=== PATIENT | female | born 1945 | race Caucasian/White ===

== ENCOUNTER 2016-09-24 12:13 | Inpatient (IN) | payer MEDICARE, BC ==
--- NOTE | 2016-09-24 13:13 | ED ---
Altered Mental Status HPI - General Chief Complaint: Altered Mental Status Stated Complaint: Altered Mental Time Seen by Provider: 09/24/16 12:50 Source: patient, RN notes reviewed Mode of arrival: wheelchair Limitations: no limitations - History of Present Illness Initial Comments: This is a 71-year-old female history of hypertension who is somewhat noncompliant with her medications who had an episode this started around 10:30 to 11:00 this morning of decreased responsiveness and some confusion. She resolved and now is awake alert oriented 3 with no deficits. She denies any headache blurry vision focal weakness to upper or lower extremities fevers chills or sweats. She did tell a family member that she was "going down" which the patient states that is what she says when she feels like she is getting ill. She denies any dysuria or hematuria she did recently have a urinary tract infection was treated. She has no prior history of stroke no history of hypoglycemia. MD Complaint: altered mental status, confusion - Related Data Home Medications Medication Instructions Recorded Confirmed Latanoprost Ophth [Xalatan 0.005%] 1 drops RIGHT EYE HS 12/11/15 09/24/16 Levothyroxine Sodium [Synthroid] 50 mcg PO DAILY 12/11/15 09/24/16 Montelukast [Singulair] 10 mg PO HS 12/11/15 09/24/16 Timolol 0.5% Ophth Soln [Timoptic 1 drop BOTH EYES BID 12/11/15 09/24/16 0.5% Ophth Soln] Albuterol Nebulized [Ventolin 2.5 mg INHALATION RT-TID PRN 09/24/16 09/24/16 Nebulized] Albuterol Sulfate [Proair Hfa] 2 puff INHALATION RT-Q4H PRN 09/24/16 09/24/16 Biotin 5 mg PO DAILY 09/24/16 09/24/16 Budesonide-Formot 160-4.5 Mcg 2 puff INHALATION RT-BID 09/24/16 09/24/16 [Symbicort 160-4.5 Mcg Inhaler] Cyclobenzaprine [Flexeril] 5 - 10 mg PO HS 09/24/16 09/24/16 Fluticasone/Salmeterol [Advair 1 tab PO RT-BID 09/24/16 09/24/16 250-50 Diskus] Nitrofurantoin Monohyd/M-Cryst 100 mg PO Q12HR 09/24/16 09/24/16 [Macrobid] SUMAtriptan SUCCINATE [Imitrex] 50 mg PO DAILY PRN 09/24/16 09/24/16 Zolpidem Tartrate [Zolpidem 10 mg PO HS PRN 09/24/16 09/24/16 Tartrate] traMADol HCL [Ultram] 50 mg PO Q6HR PRN 09/24/16 09/24/16 Allergies Allergy/AdvReac Type Severity Reaction Status Date / Time Penicillins Allergy Unknown Verified 09/24/16 12:19 Sulfa (Sulfonamide Allergy Unknown Verified 09/24/16 12:19 Antibiotics) Review of Systems ROS Statement: Those systems with pertinent positive or pertinent negative responses have been documented in the HPI. ROS Other: All systems not noted in ROS Statement are negative. Past Medical History Past Medical History: Asthma, Hyperlipidemia Additional Past Medical History / Comment(s): glaucoma, fungal infection of the brain History of Any Multi-Drug Resistant Organisms: None Reported Past Surgical History: Appendectomy, Tonsillectomy Additional Past Surgical History / Comment(s): shoulder, sinus Past Psychological History: No Psychological Hx Reported Smoking Status: Never smoker Past Alcohol Use History: None Reported Past Drug Use History: None Reported General Exam - General Exam Comments Initial Comments: This is a well-developed well-nourished awake alert oriented 3 female Limitations: no limitations General appearance: alert, in no apparent distress Head exam: Present: atraumatic, normocephalic, normal inspection Eye exam: Present: normal appearance, PERRL, EOMI. Absent: scleral icterus, conjunctival injection, periorbital swelling ENT exam: Present: normal exam, mucous membranes moist Neck exam: Present: normal inspection. Absent: tenderness, meningismus, lymphadenopathy Respiratory exam: Present: normal lung sounds bilaterally. Absent: respiratory distress, wheezes, rales, rhonchi, stridor Cardiovascular Exam: Present: regular rate, normal rhythm, normal heart sounds. Absent: systolic murmur, diastolic murmur, rubs, gallop, clicks GI/Abdominal exam: Present: soft, normal bowel sounds. Absent: distended, tenderness, guarding, rebound, rigid Extremities exam: Present: normal inspection, full ROM, normal capillary refill. Absent: tenderness, pedal edema, joint swelling, calf tenderness Back exam: Present: normal inspection Neurological exam: Present: alert, oriented X3, CN II-XII intact Psychiatric exam: Present: normal affect, normal mood Skin exam: Present: warm, dry, intact, normal color. Absent: rash Course Vital Signs 09/24/16 09/24/16 09/24/16 12:17 12:54 14:08 Temperature 98.2 F Pulse Rate 64 63 66 Respiratory 18 14 18 Rate Blood Pressure 212/84 184/93 190/92 O2 Sat by Pulse 97 100 98 Oximetry 09/24/16 09/24/16 14:45 15:40 Temperature Pulse Rate 61 67 Respiratory 14 14 Rate Blood Pressure 171/88 169/87 O2 Sat by Pulse 100 98 Oximetry - Reevaluation(s) Reevaluation #1: 09/24/16 16:13 Evaluation patient after return from CAT scan shows no changes Medical Decision Making - Medical Decision Making I did a long discussion with patient family regarding the findings also discussed with . Patient will be admitted for evaluation for TIA. - Lab Data Result diagrams: 09/24/16 13:11 09/24/16 13:11 Lab Results 09/24/16 09/24/16 09/24/16 Range/Units 13:11 13:11 13:11 WBC 5.0 (3.8-10.6) k/uL RBC 4.07 (3.80-5.40) m/uL Hgb 12.2 (11.4-16.0) gm/dL Hct 37.6 (34.0-46.0) % MCV 92.3 (80.0-100.0) fL MCH 30.1 (25.0-35.0) pg MCHC 32.6 (31.0-37.0) g/dL RDW 12.8 (11.5-15.5) % Plt Count 216 (150-450) k/uL Neutrophils % 62 % Lymphocytes % 21 % Monocytes % 6 % Eosinophils % 7 % Basophils % 1 % Neutrophils # 3.1 (1.3-7.7) k/uL Lymphocytes # 1.1 (1.0-4.8) k/uL Monocytes # 0.3 (0-1.0) k/uL Eosinophils # 0.4 (0-0.7) k/uL Basophils # 0.1 (0-0.2) k/uL PT (9.0-12.0) sec INR (<1.1) APTT (22.0-30.0) sec Sodium 141 (137-145) mmol/L Potassium 4.1 (3.5-5.1) mmol/L Chloride 102 (98-107) mmol/L Carbon Dioxide 30 (22-30) mmol/L Anion Gap 9 mmol/L BUN 13 (7-17) mg/dL Creatinine 0.56 (0.52-1.04) mg/dL Est GFR (MDRD) Af Amer >60 (>60 ml/min/1.73 sqM) Est GFR (MDRD) Non-Af >60 (>60 ml/min/1.73 sqM) Glucose 109 H (74-99) mg/dL POC Glucose (mg/dL) (75-99) mg/dL POC Glu Disability Manager ID Calcium 9.3 (8.4-10.2) mg/dL Magnesium 2.0 (1.6-2.3) mg/dL Total Bilirubin 0.4 (0.2-1.3) mg/dL AST 21 (14-36) U/L ALT 32 (9-52) U/L Alkaline Phosphatase 77 (38-126) U/L Total Creatine Kinase 29 L (30-135) U/L CK-MB (CK-2) 0.6 (0.0-2.4) ng/mL CK-MB (CK-2) Rel Index 2.1 Troponin I <0.012 (0.000-0.034) ng/mL Total Protein 6.4 (6.3-8.2) g/dL Albumin 3.6 (3.5-5.0) g/dL Urine Color Urine Appearance (Clear) Urine pH (5.0-8.0) Ur Specific [place] (1.001-1.035) Urine Protein (Negative) Urine Glucose (UA) (Negative) Urine Ketones (Negative) Urine Blood (Negative) Urine Nitrate (Negative) Urine Bilirubin (Negative) Urine Urobilinogen (<2.0) mg/dL Ur Leukocyte Esterase (Negative) Urine RBC (0-5) /hpf Urine WBC (0-5) /hpf Ur Squamous Epith Cells (0-4) /hpf Urine Mucus (None) /hpf Urine Opiates Screen (NotDetected) Ur Oxycodone Screen (NotDetected) Urine Methadone Screen (NotDetected) Ur Propoxyphene Screen (NotDetected) Ur Barbiturates Screen (NotDetected) U Tricyclic Antidepress (NotDetected) Ur Phencyclidine Scrn (NotDetected) Ur Amphetamines Screen (NotDetected) U Methamphetamines Scrn (NotDetected) U Benzodiazepines Scrn (NotDetected) Urine Cocaine Screen (NotDetected) U Marijuana (THC) Screen (NotDetected) 09/24/16 09/24/16 09/24/16 Range/Units 13:14 13:40 13:55 WBC (3.8-10.6) k/uL RBC (3.80-5.40) m/uL Hgb (11.4-16.0) gm/dL Hct (34.0-46.0) % MCV (80.0-100.0) fL MCH (25.0-35.0) pg MCHC (31.0-37.0) g/dL RDW (11.5-15.5) % Plt Count (150-450) k/uL Neutrophils % % Lymphocytes % % Monocytes % % Eosinophils % % Basophils % % Neutrophils # (1.3-7.7) k/uL Lymphocytes # (1.0-4.8) k/uL Monocytes # (0-1.0) k/uL Eosinophils # (0-0.7) k/uL Basophils # (0-0.2) k/uL PT 10.9 (9.0-12.0) sec INR 1.1 (<1.1) APTT 21.5 L (22.0-30.0) sec Sodium (137-145) mmol/L Potassium (3.5-5.1) mmol/L Chloride (98-107) mmol/L Carbon Dioxide (22-30) mmol/L Anion Gap mmol/L BUN (7-17) mg/dL Creatinine (0.52-1.04) mg/dL Est GFR (MDRD) Af Amer (>60 ml/min/1.73 sqM) Est GFR (MDRD) Non-Af (>60 ml/min/1.73 sqM) Glucose (74-99) mg/dL POC Glucose (mg/dL) 106 H (75-99) mg/dL POC Glu Disability Manager ID Annabella Mejia A Calcium (8.4-10.2) mg/dL Magnesium (1.6-2.3) mg/dL Total Bilirubin (0.2-1.3) mg/dL AST (14-36) U/L ALT (9-52) U/L Alkaline Phosphatase (38-126) U/L Total Creatine Kinase (30-135) U/L CK-MB (CK-2) (0.0-2.4) ng/mL CK-MB (CK-2) Rel Index Troponin I (0.000-0.034) ng/mL Total Protein (6.3-8.2) g/dL Albumin (3.5-5.0) g/dL Urine Color Light Yellow Urine Appearance Clear (Clear) Urine pH 7.0 (5.0-8.0) Ur Specific [place] 1.006 (1.001-1.035) Urine Protein Negative (Negative) Urine Glucose (UA) Negative (Negative) Urine Ketones Negative (Negative) Urine Blood Negative (Negative) Urine Nitrate Negative (Negative) Urine Bilirubin Negative (Negative) Urine Urobilinogen <2.0 (<2.0) mg/dL Ur Leukocyte Esterase Moderate H (Negative) Urine RBC 1 (0-5) /hpf Urine WBC 1 (0-5) /hpf Ur Squamous Epith Cells <1 (0-4) /hpf Urine Mucus Rare H (None) /hpf Urine Opiates Screen Not Detected (NotDetected) Ur Oxycodone Screen Not Detected (NotDetected) Urine Methadone Screen Not Detected (NotDetected) Ur Propoxyphene Screen Not Detected (NotDetected) Ur Barbiturates Screen Not Detected (NotDetected) U Tricyclic Antidepress Not Detected (NotDetected) Ur Phencyclidine Scrn Not Detected (NotDetected) Ur Amphetamines Screen Not Detected (NotDetected) U Methamphetamines Scrn Not Detected (NotDetected) U Benzodiazepines Scrn Not Detected (NotDetected) Urine Cocaine Screen Not Detected (NotDetected) U Marijuana (THC) Screen Not Detected (NotDetected) - EKG Data -: EKG Interpreted by Mn EKG shows normal: sinus rhythm (Normal sinus rhythm rate is 62. Interval 176 QRS duration 70 daily since QTC of 40/[address] configuration.) - Radiology Data Radiology results: report reviewed (I did review the imaging and reports no acute findings.), image reviewed Critical Care Time Critical Care Time: Yes Critical Care Time: 31 minutes of critical care time which was initial history physical lab and x- ray evaluations reevaluation patient response to therapy. Reevaluation after blood pressure medication. Discussion with patient family regarding findings discussed with the admitting physician. Orders and documentation the above. Disposition Clinical Impression: Transient ischemic attack (TIA), Uncontrolled hypertension Disposition: ADMITTED IP TO THIS HOSP Condition: Stable
[2016-09-24 13:16] LABS: Glucose,Whole Blood 106 mg/dL (75-99)
[2016-09-24 13:22] LABS: Basophils # (A) 0.1 k/uL (0-0.2); Basophils % (A) 1 %; CH 30.7; CHCM 33.4; Eosinophils # (A) 0.4 k/uL (0-0.7); Eosinophils % (A) 7 %; HCT 37.6 % (34.0-46.0); HDW 2.51; HGB 12.2 gm/dL (11.4-16.0); Luc # (Auto) 0.13; Luc % (Auto) 3; Lymphocytes # (A) 1.1 k/uL (1.0-4.8); Lymphocytes % (A) 21 %; MCH 30.1 pg (25.0-35.0); MCHC 32.6 g/dL (31.0-37.0); MCV 92.3 fL (80.0-100.0); Mean Platelet Volume 6.9; Monocytes # (A) 0.3 k/uL (0-1.0); Monocytes % (A) 6 %; Neutrophils # (A) 3.1 k/uL (1.3-7.7); Neutrophils % (A) 62 %; RBC 4.07 m/uL (3.80-5.40); RDW 12.8 % (11.5-15.5); WBC (Perox) 5.28
[2016-09-24 13:37] LABS: ALT 32 U/L (9-52); AST 21 U/L (14-36); Alkaline Phosphatase 77 U/L (38-126); Anion Gap 9 mmol/L; Blood Urea Nitrogen 13 mg/dL (7-17); Calcium 9.3 mg/dL (8.4-10.2); Carbon Dioxide 30 mmol/L (22-30); Chloride 102 mmol/L (98-107); Glucose 109 mg/dL (74-99); Non-African American GFR(MDRD) >60 (>60 ml/min/1.73 sqM); Potassium 4.1 mmol/L (3.5-5.1); Sodium 141 mmol/L (137-145); Total Bilirubin 0.4 mg/dL (0.2-1.3); Total Protein 6.4 g/dL (6.3-8.2)
--- NOTE | 2016-09-24 13:50 | XR ---
EXAMINATION TYPE: XR chest 2V DATE OF EXAM: 09/24/2016 1:26 PM COMPARISON: 07/28/2016 INDICATION: Syncope altered mental status TECHNIQUE: Frontal and lateral views of the chest are obtained. FINDINGS: The heart size is normal. The pulmonary vasculature is normal. The lungs are clear. IMPRESSION: 1. No acute pulmonary process.
[2016-09-24 13:58] LABS: Creatine Kinase 29 U/L (30-135)
[2016-09-24] MEDS ORDERED: ENALAPRILAT 1.25 MG/ML 1 ML VIAL IVP STA (14:03)
[2016-09-24] MEDS ORDERED: SODIUM CHLORIDE 0.9% 500 ML IV STA (14:03)
[2016-09-24 14:11] LABS: Creatine Kinase MB 0.6 ng/mL (0.0-2.4); Troponin I <0.012 ng/mL (0.000-0.034)
--- NOTE | 2016-09-24 14:21 | CT ---
EXAMINATION TYPE: CT brain wo con DATE OF EXAM: 09/24/2016 1:56 PM COMPARISON: 02/03/2012 INDICATION: syncopal episode with memory loss DLP: 995.5 mGycm, Automated exposure control for dose reduction was used. CONTRAST: None CT of the brain is performed utilizing 3 mm thick sections through the posterior fossa and 3 mm thick sections through the remaining calvarium. Study is performed within 24 hours of arri eyad to the hospital. No abnormal hyperdensity is present to suggest an acute intracranial hemorrhage. No mass lesion is evident. No acute infarcts are evident. Ventricles and sulci are appropriate for the patient age. Extensive paranasal sinus mucosal thickening is present. Air-fluid levels are within the maxillary si nuses. Correlate for acute sinusitis. Postsurgical changes are within the ethmoid air cells. Frontal sinuses are clear. Air-fluid levels within the sphenoid sinuses. This may have some improvement from prior. The left sphenoid wall near the carotid artery remains thin. IMPRESSIONS: 1. No acute intracranial process. 2. Pansinusitis
[2016-09-24 14:33] LABS: Appearance,Urine Clear (Clear); Bilirubin,Urine Negative (Negative); Glucose,Urine (UA) Negative (Negative); Ketones,Urine Negative (Negative); Leukocyte Esterase,Urine Moderate (Negative); Mucus,Urine Rare /hpf; Nitrite,Urine Negative (Negative); Particle Count 731; Protein,Urine Negative (Negative); RBC,Urine 1 /hpf (0-5); Specific Gravity,Urine 1.006 (1.001-1.035); Squamous Epithelial Cell,Urine <1 /hpf (0-4); UA Billing (MACRO vs. MICRO) MICRO; Urobilinogen,Urine <2.0 mg/dL (<2.0); WBC,Urine 1 /hpf (0-5)
[2016-09-24 15:10] LABS: INR 1.1 (<1.1); Prothrombin Time 10.9 sec (9.0-12.0)
[2016-09-24 15:11] LABS: Partial Thromboplastin Time 21.5 sec (22.0-30.0)
[2016-09-24] MEDS ORDERED: ALBUTEROL NEBULIZED 2.5 MG/3 ML INHALATION PRN (16:19)
[2016-09-24] MEDS ORDERED: SUMAtriptan SUCCINATE 50 MG TAB PO PRN (16:19)
[2016-09-24] MEDS ORDERED: ALBUTEROL INHALER 60 PUFF/8 GM INHALER INHALATION PRN (16:19)
[2016-09-24] MEDS ORDERED: ZOLPIDEM 10 MG TAB PO PRN (16:19)
[2016-09-24] MEDS ORDERED: SODIUM CHLORIDE 0.9% 1,000 ML IV SCH (16:30)
[2016-09-24] MEDS ORDERED: ASPIRIN 81 MG CHEW PO STA (16:33)
[2016-09-24] MEDS: traMADol 50 MG TAB PO PRN (17:38)
--- NOTE | 2016-09-24 18:26 | US ---
EXAMINATION TYPE: US carotid duplex BILAT DATE OF EXAM: 09/24/2016 5:12 PM COMPARISON: NONE CLINICAL HISTORY: Patient had period of confusion lasting less than 1 hour. EXAM MEASUREMENTS: RIGHT: Peak Systolic Velocity (PSV) cm/sec ----- Right CCA: 60.9 ----- Right ICA: 66.7 ----- Right ECA: 101.0 ICA/CCA ratio: 1.1 RIGHT: End Diastole cm/sec ----- Right CCA: 15.9 ----- Right ICA: 23.4 ----- Right ECA: 10.6 LEFT: Peak Systolic Velocity (PSV) cm/sec ----- Left CCA: 64.9 ----- Left ICA: 55.6 ----- Left ECA: 81.8 ICA/CCA ratio: 1.3 LEFT: End Diastole cm/sec ----- Left CCA: 18.3 ----- Left ICA: 17.3 ----- Left ECA: 17.7 VERTEBRALS (direction of flow): Right Vertebral: Antegrade Left Vertebral: Antegrade TECHNOLOGIST IMPRESSION: No elevated velocities IMPRESSION: There is antegrade flow in the vertebral arteries. There is significant plaque at the trios healtht carotid artery bifurcation but no elevated velocities are seen. I think that based on the images there is at least 50% stenosis at the origin of the right internal carotid artery. There is approxima te 50% stenosis of the origin of the left internal carotid artery based on the images. Criteria for Assigning % of Stenosis / Diameter reduction (Estimation based on the indirect measurements of the internal carotid artery velocities (ICA PSV). 1. Normal (no stenosis)=ICA PSV < 125 cm/s: ratio < 2.0: ICA EDV<40 cm/s. 2. Less than 50% stenosis=ICA PSV < 125 cm/s: ratio < 2.0: ICA EDV<40 cm/s. 3. 50 to 69% stenosis=ICA PSV of 125 to 230 cm/s: ration 2.0 ? 4.0: ICA EDV 40-100 cm/s. 4. Greater than 70% stenosis to near occlusion= ICA PSV > 230 cm/s: ratio > 4.0: ICA EDV > 100 cm/s. 5. Near occlusion= ICA PSV velocities may be low or undetectable: variable ratio and ICA EDV. 6. Total occlusion=unable to detect flow.
[2016-09-24 18:48] VITALS: RESP 16
[2016-09-24] MEDS ORDERED: SALMETEROL PO SCH (20:00)
[2016-09-24] MEDS ORDERED: FLUTICASONE PO SCH (20:00)
[2016-09-24] MEDS ORDERED: LISINOPRIL 20 MG TAB PO SCH (20:00)
[2016-09-24] MEDS: SYMBICORT 160-4.5 MCG INHALER INHALATION SCH (20:27)
[2016-09-24] MEDS ORDERED: LATANOPROST 0.005% OPHTH DROPS 2.5 ML BTL RIGHT EYE SCH (21:00)
--- NOTE | 2016-09-24 21:07 | HP ---
The patient is a 71-year-old female with history of hypertension, does not take any antihypertensives, does not take any of her cholesterol pills, does take some of her asthma medications, came in with complaints of an episode of confusion, lasted for about 1/2 hour and decreased responsiveness, although patient does not have encephalopathic hypertension ( ). Denied any loss of bowel or bladder continence. Denied any weakness anywhere in the body. Denied any tingling and numbness anywhere in the body. Patient does have chronic numbness in the bilateral lower limbs from neuropathy and radicular pain from chronic low back pain. Patient has a new facial new droop, blurry vision. REVIEW OF SYSTEMS: CONSTITUTIONAL: No fever, no malaise, no fatigue. HEENT: No recent visual problems or hearing problems. Denied any sore throat. CARDIOVASCULAR: No chest pain, orthopnea, PND, no palpitations, no syncope. PULMONARY: No shortness of breath, no cough, no hemoptysis. GASTROINTESTINAL: No diarrhea, no nausea, no vomiting, no abdominal pain. Normoactive bowel sounds. NEUROLOGICAL: As described in HPI. HEMATOLOGICAL: Denies any bleeding or petechiae. GENITOURINARY: Denies any burning micturition, frequency, or urgency. MUSCULOSKELETAL/RHEUMATOLOGICAL: Denies any joint pain, swelling, or any muscle pain. ENDOCRINE: Denies any polyuria or polydipsia. The rest of the 14 point review of systems is negative. Home medications include: 1. Levothyroxine. 2. Montelukast. 3. Timolol. 4. Albuterol. 5. Biotin. 6. Budesonide. 7. Formoterol. 8. ( ) 9. Nitrofurantoin. 10. ( ) 11. Zolpidem and 12. Tramadol. ALLERGIES: ALLERGIC TO PENICILLIN AND SULFA. Past medical history significant for asthma, hyperlipidemia, hypertension ( ) glaucoma, ( ) infection to the sinuses in the past, appendectomy, tonsillectomy, shoulder surgery, sinus surgery. Patient also has history of sarcoidosis. SOCIAL HISTORY: Denies smoking, alcohol abuse or any drug abuse. Family history significant for hypertension in the family. PHYSICAL EXAMINATION: VITAL SIGNS: Temperature 98.2, pulse of 64, respiratory rate of 18. Blood pressure on arrival was 212/84. Patient's blood pressure is 190/92 now, saturating at 98%. GENERAL: The patient is alert and oriented x3, not in any acute distress. Well developed, well nourished. HEENT: Pupils are round and equally reacting to light. EOMI. No scleral icterus. No conjunctival pallor. Normocephalic, atraumatic. No pharyngeal erythema. No thyromegaly. CARDIOVASCULAR: S1 and S2 present. No murmurs, rubs, or gallops. PULMONARY: Chest is clear to auscultation, no wheezing or crackles. ABDOMEN: Soft, nontender, nondistended, normoactive bowel sounds. No palpable organomegaly. MUSCULOSKELETAL: No joint swelling or deformity. EXTREMITIES: No cyanosis, clubbing, or pedal edema. NEUROLOGICAL: Gross neurological examination did not reveal any focal deficits. SKIN: No rashes. LABORATORY DATA: CBC, CMP, essentially within normal limits. Potassium high end of normal, 5.0. CT of the head was reviewed ( ). Comprehensive metabolic profile was reviewed, which was also essentially within normal limits, including no acute abnormalities. EKG did not show any acute ST wave changes. Patient denied any chest pain. ASSESSMENT AND PLAN: 1. Episode of confusion probable related to hypertensive encephalopathy. The patient was given IV ( ). As of now, patient does not have any symptoms of hypertensive urgency and ( ) at this point of time, because of which I have not started her on IV nitroglycerin, but patient will be started on lisinopril. Neurology will be consulted to rule out transient ischemic attack. Patient's carotid Doppler was already ordered. Will obtain an echocardiogram. Will also order lipid panel. 2. Hypertension. 3. Asthma, not in exacerbation. 4. Sarcoidosis, not in sarcoid flare at this point of time. 5. Hyperlipidemia. 6. Noncompliance with medications. 7. Patient's primary care physician is Dr. Markos Hargrove.
[2016-09-25] MEDS: MONTELUKAST 10 MG TAB PO SCH ×2 (01:44→06:45)
[2016-09-25] MEDS: NITROFURANTOIN MONOHYD/M-CRYST 100 MG CAP PO SCH ×2 (01:45→08:03)
[2016-09-25] MEDS: TIMOLOL 0.5% OPHTH DROPS 5 ML BTL BOTH EYES SCH ×2 (01:45→08:03)
[2016-09-25] MEDS: traMADol 50 MG TAB PO PRN ×2 (01:45→10:05)
[2016-09-25] MEDS ORDERED: LEVOTHYROXINE 50 MCG TAB PO SCH (06:30)
[2016-09-25 06:31] LABS: Cholesterol 222 mg/dL (<200); HDL Cholesterol 55 mg/dL (40-60); Triglycerides 69 mg/dL (<150)
[2016-09-25 08:06] VITALS: BP 139/63; PULSE 71; TEMP 97.3
[2016-09-25] MEDS: SYMBICORT 160-4.5 MCG INHALER INHALATION SCH (08:36)
[2016-09-25] MEDS ORDERED: NON-FORMULARY DRUG (Biotin [Biotin] 5 MG) PO SCH (09:00)
[2016-09-25] MEDS ORDERED: ASPIRIN 325 MG TAB PO SCH (09:00)
--- NOTE | 2016-09-25 11:48 | ECHOF ---
Referral Reason:tia htn MEASUREMENTS -------- HEIGHT: 152.4 cm WEIGHT: 57.1 kg BP: RVIDd: 2.3 cm (< 3.3) IVSd: 0.9 cm (0.6 - 1.1) LVIDd: 3.8 cm (3.9 - 5.3) LVPWd: 1.2 cm (0.6 - 1.1) IVSs: 1.2 cm LVIDs: 2.4 cm LVPWs: 1.2 cm LA Diam: 2.9 cm (2.7 - 3.8) Ao Diam: 2.3 cm (2.0 - 3.7) AV Cusp: 1.7 cm (1.5 - 2.6) LA Diam: 3.3 cm (2.7 - 3.8) MV EXCURSION: 10.716 mm (> 18.000) MV EF SLOPE: 52 mm/s (70 - 150) EPSS: 0.2 cm MV E Zak: 0.65 m/s MV DecT: 221 ms MV A Zak: 0.74 m/s MV E/A Ratio: 0.88 RAP: 5.00 mmHg RVSP: 30.05 mmHg FINDINGS -------- Sinus rhythm. This was a technically good study. LV size, wall thickness and systolic function are normal, with an EF greater than 55%. The right ventricle is normal in size. The left atrial size is normal. The right atrial size is normal. There is mild aortic valve sclerosis. There is no evidence of aortic regurgitation. Mild mitral annular calcification present. Mild mitral regurgitation is present. Mild tricuspid regurgitation present. There is no evidence of pulmonary hypertension. The right ventricular systolic pressure, as measured by Doppler, is 30.05mmHg. There is no pulmonic regurgitation present. The aortic root size is normal. There is no pericardial effusion. CONCLUSIONS -------- 1. LV size, wall thickness and systolic function are normal, with an EF greater than 55%. 2. There is mild aortic valve sclerosis. 3. Mild mitral annular calcification present. 4. Mild mitral regurgitation is present. 5. Mild tricuspid regurgitation present. 6. There is no evidence of pulmonary hypertension. 7. The right ventricular systolic pressure, as measured by Doppler, is 30.05mmHg. RADIO FREQUENCY TECHNICIAN: Elissa Paez RDCS
--- NOTE | 2016-09-26 06:57 | EEG ---
DATE OF SERVICE: 09/25/2016 REASON FOR TESTING: Transient ischemic attack. AGE: 71Y DESCRIPTION OF THE PROCEDURE: This EEG was performed using a 21-channel digital electroencephalograph, following the international 10 to 20 system. DESCRIPTION OF THE RECORDING: From the beginning of the tracing, and with the patient's eyes closed, the background rhythm was mostly consisting of 9 Hz alpha frequency in the posterior occipital leads. No obvious asymmetry is seen. Photic stimulation was performed with a minimal driving response seen. No pathological waves were elicited. Hyperventilation was not performed. Occasional muscle and movement artifacts are seen. The patient remains awake throughout the tracing. No epileptiform discharges were seen. Her EKG lead showed a regular rate and rhythm. INTERPRETATION: This awake EEG can be considered within normal limits. There was no asymmetry seen. No epileptiform discharges were noticed. The absence of epileptiform discharges does not rule out the diagnosis of epilepsy, therefore, clinical correlation is recommended.
--- NOTE | 2016-09-26 08:55 | DS ---
DATE OF ADMISSION: 09/24/2016 DATE OF DISCHARGE: 09/25/2016 A 71-year-old came in with an episode of confusion, probably related to hypertensive encephalopathy. Patient has significant improved symptoms. Patient's carotid Doppler was done, and EKG was done, both of which are essentially within normal limits. Patient is noncompliant with blood pressure medications. Her blood pressure today morning is 139/63 on lisinopril. Counseling regarding probably related to measure the blood pressure was provided and asked her to take those readings to her primary doctor, that is Markos Hargrove and patient was started on lisinopril and if she needs a second antihypertensive medication, probably hydrochlorothiazide would be a good idea. Patient will be discharged today in stable medical condition to home. Patient has elevated LDL to 153. I do not believe dietary modification will help her, ( ) and started her on atorvastatin as well. Patient was seen and examined on the day of discharge. Vitals are stable to. PHYSICAL EXAMINATION: GENERAL: The patient is alert and oriented x3, not in any acute distress. Well developed, well nourished. HEENT: Pupils are round and equally reacting to light. EOMI. No scleral icterus. No conjunctival pallor. Normocephalic, atraumatic. No pharyngeal erythema. No thyromegaly. CARDIOVASCULAR: S1 and S2 present. No murmurs, rubs, or gallops. PULMONARY: Chest is clear to auscultation, no wheezing or crackles. ABDOMEN: Soft, nontender, nondistended, normoactive bowel sounds. No palpable organomegaly. MUSCULOSKELETAL: No joint swelling or deformity. EXTREMITIES: No cyanosis, clubbing, or pedal edema. NEUROLOGICAL: Gross neurological examination did not reveal any focal deficits. SKIN: No rashes. FINAL DIAGNOSES: 1. Episode of confusion probably related to hypertensive encephalopathy rather than a transient ischemic attack. 2. Hypertension. 3. Asthma, not in exacerbation. 4. Sarcoidosis, not in sarcoid ( ) at this point of time. 5. Hyperlipidemia. 6. Noncompliance of medications. Patient will be discharged on: 1. Aspirin 81 mg daily. 2. Atorvastatin 40 mg at bedtime. 3. Lisinopril 20 mg oral daily. The rest of the medications will be continued as it is, without any changes and patient will follow with Dr. Markos Hargrove on September 30, 2016 at 2 p.m. Activity as tolerated. Cardiac diet. Spent greater than 35 minutes in total discharge process.
== END 2016-09-25 15:12 | disposition home or self-care (01) | DRG 79 ==
LOC: EC 12:13 → 6SEL 16:16
PROVIDERS: ADMIT Internal Medicine; ATTEND Internal Medicine
DX: I67.4 Hypertensive encephalopathy (principal); G62.9 Polyneuropathy, unspecified; E78.5 Hyperlipidemia, unspecified; I10 Essential (primary) hypertension; J45.909 Unspecified asthma, uncomplicated; T44.7X6A Underdosing of beta-adrenoreceptor antagonists, initial encounter; T46.6X6A Underdosing of antihyperlipidemic and antiarteriosclerotic drugs, initial encounter; R29.810 Facial weakness; H53.8 Other visual disturbances; M54.5 Low back pain; D86.9 Sarcoidosis, unspecified; G89.29 Other chronic pain; H40.9 Unspecified glaucoma; Z88.0 Allergy status to penicillin; Z88.2 Allergy status to sulfonamides; Z86.19 Personal history of other infectious and parasitic diseases; Z79.2 Long term (current) use of antibiotics; Z79.891 Long term (current) use of opiate analgesic; Z82.49 Family history of ischemic heart disease and other diseases of the circulatory system; Z79.51 Long term (current) use of inhaled steroids; Z79.899 Other long term (current) drug therapy; Z90.49 Acquired absence of other specified parts of digestive tract; Z91.14 Patient's other noncompliance with medication regimen; Z71.89 Other specified counseling; Z79.1 Long term (current) use of non-steroidal anti-inflammatories (NSAID)
CPT/HCPCS: 36415; 70450; 71020; 80053; 80061; 80306; 81001; 82550; 82553; 83090; 83735; 84484; 85025; 85610; 85730; 93005; 93306; 93880; 94640; 95816; 96361; 96374; 99291

== ENCOUNTER → 2016-12-11 | Outpatient (CLI) | payer MEDICARE, BC ==
--- NOTE | 2016-12-12 07:11 | XR ---
EXAMINATION TYPE: XR ribs LT DATE OF EXAM ORDERED: 12/11/2016 1:05 PM HISTORY: R07.81. COMPARISON: Previous chest x-ray dated 09/24/2016. FINDINGS: No displaced rib fractures seen. The underlying lung appears unremarkable. There is develo ped a left-sided effusion. IMPRESSION: 1. NO DISPLACED RIB FRACTURES IDENTIFIED. 2. INTERVAL DEVELOPMENT OF A LEFT PLEURAL EFFUSION.
== END | disposition home or self-care (01) ==
LOC: RADXRYALE 12:33
PROVIDERS: ATTEND Physician Assistant Medical
DX: J90 Pleural effusion, not elsewhere classified (principal); R07.81 Pleurodynia

== ENCOUNTER → 2016-12-25 | Outpatient (CLI) | payer MEDICARE, BC ==
--- NOTE | 2016-12-26 08:19 | XR ---
EXAMINATION TYPE: XR chest 2V DATE OF EXAM: 12/25/2016 10:03 AM COMPARISON: Prior chest x-ray September, left RIBS 11 December 2016 HISTORY: Chest pain, fall 2 weeks prior TECHNIQUE: Frontal and lateral views of the chest are obtained. FINDINGS: No significant interval change. There is a spinal curvature. Cardiomediastinal silhouette, pulmonary vascularity and josep are stable, the heart is borderline enlarged. IMPRESSION: No acute cardiopulmonary process. Consider bone scan correlation for occult fracture as indicated. Improvement in left pleural effusion. Scoliosis. Degenerative disc disease.
== END | disposition home or self-care (01) ==
LOC: RADXRYALE 09:37
PROVIDERS: ATTEND Family Medicine
DX: J90 Pleural effusion, not elsewhere classified (principal); M41.9 Scoliosis, unspecified; M51.9 Unspecified thoracic, thoracolumbar and lumbosacral intervertebral disc disorder
CPT/HCPCS: 71020

== ENCOUNTER 2017-02-07 17:08 | Emergency (ER) | payer MEDICARE, BC ==
[2017-02-07 17:35] VITALS: BP 118/60; PULSE 60; RESP 16; TEMP 100.2
--- NOTE | 2017-02-07 18:38 | ED ---
Lower Extremity Injury HPI - General Chief Complaint: Extremity Injury, Lower Stated Complaint: foot pain Time Seen by Provider: 02/07/17 18:25 Source: patient, family, RN notes reviewed Mode of arrival: wheelchair Limitations: no limitations - History of Present Illness Initial Comments: This is a 71-year-old female who presents with complaints of right ankle and foot pain this started about 3 hours prior to admission. She is not recall any particular injury that may have hurt the ankle. She states she's been gardening and doing a lot of outdoor work last several days but does not recall any pertinent tickler traumatic event. She has no prior history of right ankle or foot fractures. No other complaints this time she denies any other symptoms such as runny nose earache sore throat rhinorrhea cough or phlegm production or any other complaints no dysuria. - Related Data Home Medications Medication Instructions Recorded Confirmed Latanoprost Ophth [Xalatan 0.005%] 1 drops RIGHT EYE HS 12/11/15 02/07/17 Levothyroxine Sodium [Synthroid] 50 mcg PO QAM 12/11/15 02/07/17 Montelukast [Singulair] 10 mg PO HS 12/11/15 02/07/17 Timolol 0.5% Ophth Soln [Timoptic 1 drop BOTH EYES BID 12/11/15 02/07/17 0.5% Ophth Soln] Albuterol Nebulized [Ventolin 2.5 mg INHALATION RT-TID PRN 09/24/16 02/07/17 Nebulized] Albuterol Sulfate [Proair Hfa] 2 puff INHALATION RT-Q4H PRN 09/24/16 02/07/17 Biotin 5 mg PO DAILY 09/24/16 02/07/17 Fluticasone/Salmeterol [Advair 1 puff INHALATION RT-BID 09/24/16 02/07/17 250-50 Diskus] SUMAtriptan SUCCINATE [Imitrex] 50 mg PO BID PRN 09/24/16 02/07/17 traMADol HCL [Ultram] 50 mg PO Q6HR PRN 09/24/16 02/07/17 Aspirin EC [Ecotrin Low Dose] 81 mg PO DAILY 02/07/17 02/07/17 Previous Rx's Medication Instructions Recorded Atorvastatin [Lipitor] 40 mg PO HS #30 tablet 09/25/16 Lisinopril [Prinivil] 20 mg PO DAILY #30 tablet 09/25/16 Ibuprofen [Motrin] 600 mg PO Q6HR PRN #20 tab 02/07/17 Allergies Allergy/AdvReac Type Severity Reaction Status Date / Time Penicillins Allergy Rash/Hives/ Verified 02/07/17 19:02 Convulsions Sulfa (Sulfonamide Allergy Swelling/Increased Verified 02/07/17 19:02 Antibiotics) Blood Pressure Review of Systems ROS Statement: Those systems with pertinent positive or pertinent negative responses have been documented in the HPI. ROS Other: All systems not noted in ROS Statement are negative. Past Medical History Past Medical History: Asthma, Hyperlipidemia, Hypertension, Osteoarthritis (OA) , Thyroid Disorder Additional Past Medical History / Comment(s): bp and cholesterol-stopped taking meds. glaucoma, past"fungal infection of the brain", anna mastoiditis(had sx), glaucoma, macular degeneration, migraine, murmur in her 30's, chronic back pain, 4 bulging discs and bone spurs on spine,sarcoidosis, tx w/ abx in past 30 days for uti. History of Any Multi-Drug Resistant Organisms: None Reported Past Surgical History: Appendectomy, Heart Catheterization, Tonsillectomy Additional Past Surgical History / Comment(s): rt shoulder sx( has metal), sinus sx, tube in rt ear-lt ear tube fell out.colonoscopy, anna cataracts-lens implants and sx for glaucoma Past Anesthesia/Blood Transfusion Reactions: No Reported Reaction Additional Past Anesthesia/Blood Transfusion Reaction / Comment(s): clausterphobic Past Psychological History: No Psychological Hx Reported Smoking Status: Never smoker Past Alcohol Use History: None Reported Additional Past Alcohol Use History / Comment(s): 2nd handsmoke >40 years( spouse smoked in house) Past Drug Use History: None Reported - Past Family History Mother Family Medical History: Cancer Additional Family Medical History / Comment(s): breast cancer, heart problems Father Family Medical History: No Reported History Additional Family Medical History / Comment(s): from old age General Exam - General Exam Comments Initial Comments: This is a well-developed well-nourished awake alert oriented 3 female Limitations: no limitations General appearance: alert, in no apparent distress Head exam: Present: atraumatic, normocephalic, normal inspection Eye exam: Present: normal appearance, PERRL, EOMI. Absent: scleral icterus, conjunctival injection, periorbital swelling ENT exam: Present: normal exam, mucous membranes moist Neck exam: Present: normal inspection. Absent: tenderness, meningismus, lymphadenopathy Respiratory exam: Present: normal lung sounds bilaterally. Absent: respiratory distress, wheezes, rales, rhonchi, stridor Cardiovascular Exam: Present: regular rate, normal rhythm, normal heart sounds. Absent: systolic murmur, diastolic murmur, rubs, gallop, clicks Extremities exam: Present: normal inspection, tenderness (Tenderness palpation of the right ankle lateral aspect inferior to the malleolus also tenderness palpation over lateral right foot no step-off or crepitation.) Back exam: Present: normal inspection Neurological exam: Present: alert, oriented X3, CN II-XII intact Psychiatric exam: Present: normal affect, normal mood Skin exam: Present: warm, dry, intact, normal color. Absent: rash Course Vital Signs 02/07/17 17:32 Temperature 100.2 F H Pulse Rate 60 Respiratory 16 Rate Blood Pressure 118/60 O2 Sat by Pulse 98 Oximetry Medical Decision Making - Medical Decision Making I did discuss findings with the patient and her family patient will be discharged she was advised to weight-bear as tolerated ice for 24-48 hours and warm compresses and anti-inflammatories for initial pain follow-up with her doctor and return when necessary - Radiology Data Radiology results: report reviewed, image reviewed (I did review the imaging and reports no acute findings no fractures or subluxations noted. There is some evidence of mild osteoporosis) Disposition Clinical Impression: Right foot strain, Right ankle strain Disposition: HOME SELF-CARE Condition: Good Instructions: Foot Sprain (ED), Ankle Sprain (ED) Prescriptions: Ibuprofen [Motrin] 600 mg PO Q6HR PRN #20 tab PRN Reason: Pain Referrals: Markos Hargrove DO [Primary Care Provider] - 1-2 days
--- NOTE | 2017-02-07 18:59 | XR ---
EXAMINATION TYPE: XR ankle complete RT DATE OF EXAM: 02/07/2017 COMPARISON: NONE HISTORY: Pain lateral side TECHNIQUE: 3 views right ankle FINDINGS: Ankle mortise is intact. No acute displaced fractures are evident. Soft tissues are normal. IMPRESSION: 1. Normal three-view right ankle. 2. Follow-up exams can be performed 7-10 days from acute trauma for continued pain.
--- NOTE | 2017-02-07 19:00 | XR ---
EXAMINATION TYPE: XR foot complete RT DATE OF EXAM: 02/07/2017 COMPARISON: NONE HISTORY: Pain lateral side TECHNIQUE: 3 views right foot FINDINGS: No acute fractures are evident. Joint spaces are preserved. Soft tissues are normal. Follow-up exams can be performed 7-10 days from acute trauma for continued pain. IMPRESSION: 1. Normal three-view right foot.
[2017-02-07] MEDS ORDERED: IBUPROFEN 600 MG TAB PO STA (19:15)
== END 2017-02-07 19:41 | disposition home or self-care (01) ==
LOC: EC 17:08
DX: S96.911A Strain of unspecified muscle and tendon at ankle and foot level, right foot, initial encounter (principal); J45.909 Unspecified asthma, uncomplicated; E78.5 Hyperlipidemia, unspecified; I10 Essential (primary) hypertension; M19.90 Unspecified osteoarthritis, unspecified site; E07.9 Disorder of thyroid, unspecified; Z79.51 Long term (current) use of inhaled steroids; Z79.899 Other long term (current) drug therapy; Z88.0 Allergy status to penicillin; Z88.2 Allergy status to sulfonamides; X58.XXXA Exposure to other specified factors, initial encounter
CPT/HCPCS: 99283

== ENCOUNTER → 2017-10-02 | Outpatient (CLI) | payer MEDICARE, BC ==
--- NOTE | 2017-10-03 07:39 | US ---
EXAMINATION TYPE: US abdomen complete DATE OF EXAM: 10/02/2017 COMPARISON: CT abdomen March 28, 2016 CLINICAL HISTORY: R19.06 Gastric Swelling/Lump. Bloating, epigastric pain, N/V x 2 months EXAM MEASUREMENTS: Liver Length: 12.6 cm Gallbladder Wall: 0.2 cm CBD: 0.4 cm Spleen: 7.3 cm Right Kidney: 10.2 x 4.8 x 4.1 cm Left Kidney: 10.9 x 4.4 x 3.9 cm Pancreas: tail obscured by bowel gas, otherwise wnl Liver: probable hemangioma in right posterior lobe = 2.0cm Gallbladder: wnl Evidence for sonographic Tay's sign: no CBD: wnl Spleen: wnl Right Kidney: prominent renal pelvis versus mild hydro Left Kidney: wnl Upper IVC: wnl Abd Aorta: wnl Scanned area of palpable, anterior to right lobe of liver, possible 1.5cm mass versus other etiology The liver is homogenous. In hepatic dome there is 2 cm hyperechoic lesion seen near image [address] correlate[address] The intrahepatic portion of the IVC and visualized abdominal aorta are within normal l imits. There is no evidence of cholelithiasis. Common bile duct is unremarkable. The visualized po rtions of the pancreas are homogenous. The spleen is unremarkable. Kidneys are symmetric and free o f hydronephrosis. No renal lesions are seen. Towards end of study vague hyper vascular hypoechoic area likely within deep subcutaneous tissue favo rs mediastinal fat. Ill-defined lesion at this area felt less likely but not excluded. Area of concer n appears superficial to the rectus muscle sheath. IMPRESSION: Vague subcutaneous hypervascular lesion at area of palpable abnormality upper abdomen of uncertain etiology. Possible new 2 cm hyperechoic lesion in hepatic dome. Both lesions can be further investigated with contrast-enhanced liver protocol CT study.
== END | disposition home or self-care (01) ==
LOC: RADUSWWP 07:30
PROVIDERS: ATTEND Family Medicine
DX: R19.06 Epigastric swelling, mass or lump (principal)
CPT/HCPCS: 76700

== ENCOUNTER → 2017-10-15 | Outpatient (CLI) | payer MEDICARE, BC ==
[2017-10-15 12:08] LABS: Blood Urea Nitrogen 19 mg/dL (7-17)
--- NOTE | 2017-10-15 13:58 | CT ---
EXAMINATION TYPE: CT abdomen w con DATE OF EXAM: 10/15/2017 HISTORY: Epigastric pain, swelling, mass and lump CT DLP: 249.80mGycm Automated Exposure Control for Dose Reduction was Utilized. CONTRAST: CT scan of the abdomen and pelvis is performed with IV Contrast, patient injected with 100 ml mL of O mnipaque 300. COMPARISON: 03/28/1960 FINDINGS: LUNG BASES: Pleural parenchymal scarring is seen within the right middle lobe. Pectus excavatum defor mity is also incidentally seen. LIVER/GB: There is a similar appearing left hepatic lobe lesion measuring 1.6 cm, unchanged in size f rom the exam of 03/27/2016. It is noted that vessels course through this low-density area and therefor e this may represent atypical rounded hepatic steatosis, atypical hemangioma or focal nodular hyperpl pat. This is presumed to be benign given its stability. A second focal area of hypoattenuation is se en within segment 6 measuring 9 mm on series 3 image 20, retrospectively also seen on the exam of 201 6. No cholelithiasis. PANCREAS: No significant abnormality is seen. SPLEEN: No significant abnormality is seen. No splenomegaly ADRENALS: No significant abnormality is seen. KIDNEYS: Multiple hypoattenuated cortical renal lesions are seen bilaterally measuring up to 4 mm in the left lower pole and 5 mm in the right lower pole, too small to accurately characterize. Statistic ally these represent small renal cysts. BOWEL: Small duodenal diverticulum is incidentally identified. Mild circumferential thickening is see n in the gastric fundus and lower gastric body on the coronal images series 7 image 20, this could be related to gastritis. No focal ulcerations or surrounding inflammatory fat stranding. LYMPH NODES: No greater than 1cm abdominal or pelvic lymph nodes are appreciated. OSSEOUS STRUCTURES: Multilevel moderate degenerative changes are seen in the visualized thoracolumbar spine. IMPRESSION: 1. No CT finding to correspond to the patient's palpable epigastric abdominal abnormality. 2. Hypoattenuated hepatic lesions that overall appears similar to the exam of 2016 and are favored to be benign. These may represent atypical fatty infiltration, hemangiomas, or focal nodular hyperplasi a. If clinically indicated 3 phase MR could be performed for better characterization. 3. Circumferential mild gastric fundal and lower body getting that could relate to mild gastritis.
== END | disposition home or self-care (01) ==
LOC: RADCTMAIN 11:06
PROVIDERS: ATTEND Family Medicine
DX: K29.70 Gastritis, unspecified, without bleeding (principal); R19.06 Epigastric swelling, mass or lump; R93.3 Abnormal findings on diagnostic imaging of other parts of digestive tract
CPT/HCPCS: 82565; 84520; 74160; 36415; Q9967

== ENCOUNTER → 2017-12-08 | Outpatient (CLI) | payer MEDICARE, BC ==
[2017-12-08 13:49] LABS: Blood Urea Nitrogen 18 mg/dL (7-17)
--- NOTE | 2017-12-08 14:56 | CT ---
EXAMINATION TYPE: CT iac w con DATE OF EXAM: 12/08/2017 COMPARISON: 09/24/2016 HISTORY: Bilateral mastoiditis CT DLP: 150 mGycm Automated exposure control for dose reduction was used. CONTRAST: CT scan of the IACs is performed with IV Contrast, patient injected with 100 mL of Isovue 300. FINDINGS: There is partial opacification of the bilateral mastoid air cells in the inferior and dependent porti ons with suggestion of mucoperiosteal thickening suggesting chronicity. Additionally within the visua lized paranasal sinuses there is near complete opacification of the visualized maxillary sinuses and ethmoid sinuses with partial opacification of the sphenoid sinus and antrostomy defects noted. There is density seen within Prussak's space on the left that could represent cholesteatoma as there is subtle blunting of the scutum in comparison to the right (series 4 image 72 and series 3 image 44) . A scant amount of fluid is seen within the right middle ear cavity. Ossicles appear intact bilatera lly. External auditory canals are patent. Epitympanum and hypotympanum are unremarkable. The cochlea and the semicircular canals are symmetric and unremarkable. Vestibular aqueduct and internal carotid canal appear unremarkable. The left vertebral artery is dominant. Vertebral arteries appear patent in their visualized portions. Temporomandibular joints appear symmetric with mild degenerative changes. IMPRESSION: 1. Partial opacification of the bilateral mastoid air cells in keeping with the patient's history of bilateral mastoiditis. 2. Soft tissue density within Prussak's space and subtle blunting of the scutum on the left concernin g for cholesteatoma. 3. Scant amount of right middle ear cavity fluid. 4. Acute on chronic pansinusitis.
== END | disposition home or self-care (01) ==
LOC: RADCTMAIN 13:14
PROVIDERS: ATTEND Otolaryngology
DX: H74.8X3 Other specified disorders of middle ear and mastoid, bilateral (principal); H92.12 Otorrhea, left ear; H91.90 Unspecified hearing loss, unspecified ear; Z86.69 Personal history of other diseases of the nervous system and sense organs
CPT/HCPCS: 82565; 84520; 70481; 36415; Q9967

== ENCOUNTER → 2017-12-09 | Outpatient (CLI) | payer MEDICARE, BC ==
--- NOTE | 2017-12-09 12:35 | XR ---
EXAMINATION TYPE: XR chest 2V DATE OF EXAM: 12/09/2017 COMPARISON: 12/25/2016 INDICATION: Chest pain, cough, fever TECHNIQUE: Frontal and lateral views of the chest are obtained. FINDINGS: The heart size is normal. The pulmonary vasculature is normal. The lungs are clear. There is mild hyperinflation. This could be inspiratory effort emphysematous ch emily. Scoliosis is present within the lower thoracic spine. IMPRESSION: 1. Hyperinflation and/or emphysematous change. 2. No acute pulmonary process.
== END | disposition home or self-care (01) ==
LOC: RADXRYALE 12:04
PROVIDERS: ATTEND Physician Assistant Medical
DX: R07.9 Chest pain, unspecified (principal); R05 Cough
CPT/HCPCS: 71046

== ENCOUNTER → 2018-09-25 | Outpatient (CLI) | payer MEDICARE, BC ==
[2018-09-25 11:12] LABS: Blood Urea Nitrogen 21 mg/dL (7-17)
--- NOTE | 2018-09-25 12:28 | CT ---
EXAMINATION TYPE: CT chest w con DATE OF EXAM: 09/25/2018 COMPARISON: December 14, 2012 HISTORY: Left lower Rib pain /swelling from fall CT DLP: 405 mGycm Automated exposure control for dose reduction was used. CONTRAST: CT scan of the chest is performed with IV Contrast, patient injected with 100 mL of Isovue 300. FINDINGS: LUNGS: The lungs are grossly clear, there is no concerning parenchymal mass or nodule identified. Ta ble benign nodule right upper lobe measuring 5 mm unchanged from prior study. There is no pleural eff usion or pneumothorax seen. The tracheobronchial tree is patent. MEDIASTINUM: There are no greater than 1 cm hilar or mediastinal lymph nodes. No pericardial effusi on is seen. Thoracic aorta is of normal caliber. The heart is not enlarged. UPPER ABDOMEN: No significant abnormality appreciated. OTHER: Severe degenerative change thoracic spine. Scoliotic curvature noted. IMPRESSION: 1. No evidence for traumatic injury to the chest at this time. No displaced rib fracture seen or pneu mothorax. 2. Benign pulmonary nodule right upper lobe.
== END ==
LOC: RADCTMAIN 10:33
PROVIDERS: ATTEND Family Medicine
DX: R91.1 Solitary pulmonary nodule (principal); J44.9 Chronic obstructive pulmonary disease, unspecified; D86.9 Sarcoidosis, unspecified
CPT/HCPCS: 82565; 84520; 71260; 36415; Q9967

== ENCOUNTER → 2019-07-06 | Outpatient (CLI) | payer MEDICARE, BC, OTHER ==
--- NOTE | 2019-07-08 03:35 | CT ---
EXAMINATION TYPE: CT iac wo con DATE OF EXAM: 07/06/2019 COMPARISON: 12/08/2017 HISTORY: 73-year-old female hearing loss, dizziness CT DLP: 150 mGycm Automated exposure control for dose reduction was used. TECHNIQUE: Contiguous high-resolution axial scanning of the temporal bones performed without IV cont rast. Coronal reconstructions were performed. FINDINGS: Atherosclerotic calcifications within the bilateral carotid siphons. Otherwise, limited assessment of the visualized intracranial structures especially along the posterior cranial fossa and thin section technique. The skull base appears normal. External auditory canals appear patent. As compared to 12/08/2017, there is new opacification within the left mesotympanum and infratympanum no w with partial encasement of the middle ear ossicles. On the right, there is slightly greater degree of thickening along the tympanic membrane with a new p artial opacification of the mesotympanum, lesser degree of partial encasement of the middle ear ossic les as compared to the contralateral side but new from 2018. Increasing partial opacification of mid and lower right-sided mastoid air cells. On the left, there i s increasing opacification now involving nearly all of the left-sided mastoid air cells. No osseous destruction of the fine osseous septa of the mastoid air cells on either side. There is no erosion of middle ear ossicles. No blunting of the scutum. There is no abnormality of bony labyrinths. The vestibular and cochlear aqueducts are well visualized. The facial nerve canal is normal bilaterally. The internal auditory canal and meati are symmetrical bilaterally. There is no evidence of fractures. 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 Complete opacification of the bifrontal s inuses and complete to near-complete involving the ethmoid air cells. There appears to be prior bilat eral maxillary medial antrectomies with persistent moderate mucosal thickening. Overall mucosal thick ening slightly progressed from 12/08/2017. Reformatted images confirm above findings. IMPRESSION: 1. Increasing, now complete opacification of left mastoid air cells and increasing opacification invo lving the mid and inferior right mastoid air cells. No osseous erosions. 2. New partial middle ear cavity opacification on both sides, left greater than right, with partial e ncasement of the middle ear ossicles but no ossicular erosions. 3. Bilateral otomastoiditis versus extensive cholesteatoma are differential considerations. 4. Severe chronic pansinusitis, with mucosal thickening slightly progressed from 12/08/2017. There is l keena-standing paranasal sinus disease given the extensive reactive zak-osteogenesis also seen previous ly.
== END | disposition home or self-care (01) ==
LOC: RADCTMAIN 16:05
PROVIDERS: ATTEND Otolaryngology
DX: H70.93 Unspecified mastoiditis, bilateral (principal); J32.4 Chronic pansinusitis; H91.90 Unspecified hearing loss, unspecified ear; H71.90 Unspecified cholesteatoma, unspecified ear
CPT/HCPCS: 70480

== ENCOUNTER → 2019-09-16 | Outpatient (CLI) | payer MEDICARE, BC, OTHER ==
--- NOTE | 2019-09-16 09:12 | XR ---
EXAMINATION TYPE: XR ribs LT w pa chest xray DATE OF EXAM: 09/16/2019 CLINICAL HISTORY: Chest and left-sided rib pain after fall injury TECHNIQUE: Single frontal view of the chest is obtained. A frontal and oblique images of the left-agustin ed ribs. COMPARISON: Chest x-ray December 09, 2017 FINDINGS: There is chronic parenchymal change without suspicious focal air space opacity, pleural ef fusion, or pneumothorax seen. The cardiac silhouette size is stable and within normal limits with at herosclerotic change in the aortic knob. Osseous structures are demineralized with S-shaped scoliosis . Dedicated images of left-sided ribs show old fracture deformity involving the anterolateral fifth thr ough eighth ribs. No acute displaced left-sided rib fractures are seen. IMPRESSION: 1. Chronic changes without acute pulmonary process. 2. Old mid left anterolateral rib fractures. No acute displaced fractures.
--- NOTE | 2019-09-16 09:14 | XR ---
EXAMINATION TYPE: XR thoracic spine complete DATE OF EXAM: 09/16/2019 CLINICAL HISTORY: Fall with mid back pain. TECHNIQUE: Frontal, lateral, and swimmer's view of thoracic spine are obtained. COMPARISON: Thoracic spine x-ray April 30, 2016. FINDINGS: Thoracic spine redemonstrates S-shaped scoliosis which is dextroconvex centered lower thora cic spine and levoconvex centered upper to mid lumbar spine. There is loss of normal thoracic curvatu re on lateral view. Vertebral body heights remain satisfactory. Multilevel [id number] disc spac e narrowing with areas of endplate sclerosis and vacuum disc phenomenon. There prominence versus left aspect lower thoracic spine redemonstrated. No acute displaced fracture is seen. Visualized ribs are intact. IMPRESSION: No acute fracture or dislocation is seen in the thoracic spine. No significant change fr om prior study 2015.
== END | disposition home or self-care (01) ==
LOC: RADXRYALE 08:38
PROVIDERS: ATTEND Physician Assistant Medical
DX: M81.0 Age-related osteoporosis without current pathological fracture (principal); R07.82 Intercostal pain
CPT/HCPCS: 72072

== ENCOUNTER → 2019-11-12 | Outpatient (CLI) | payer MEDICARE, BC, OTHER ==
--- NOTE | 2019-11-16 08:31 | MM ---
Reason for exam: screening (asymptomatic). Last mammogram was performed 4 years and 8 months ago. History: Patient is postmenopausal. Family history of breast cancer in mother at age 67 and breast cancer in grandmother at age 67. Took estrogen for 10 years beginning at age 48. Took progesterone for 10 years beginning at age 48. Physical Findings: A clinical breast exam by your physician is recommended on an annual basis and results should be correlated with mammographic findings. MG Screening Mammo w CAD Bilateral CC and MLO view(s) were taken. Prior study comparison: March 07, 2015, bilateral MG screening mammo w CAD. January 17, 2014, bilateral MG screening mammo w CAD. The breast tissue is heterogeneously dense. This may lower the sensitivity of mammography. Central nodular asymmetries right CC view are more defined. ASSESSMENT: Incomplete: need additional imaging evaluation, BI-RAD 0 RECOMMENDATION: Special view mammogram of the right breast. (3D) If lesion persists on supplemental views, image directed ultrasound is recommended. [facility] will attempt to contact patient to return for supplemental views and ultrasound if indicated.
== END | disposition home or self-care (01) ==
LOC: RADMAMWWP 14:39
PROVIDERS: ATTEND Obstetrics & Gynecology
DX: Z12.31 Encounter for screening mammogram for malignant neoplasm of breast (principal)
CPT/HCPCS: 77067

== ENCOUNTER → 2019-11-19 | Outpatient (CLI) | payer MEDICARE, BC, OTHER ==
--- NOTE | 2019-11-19 14:14 | MM ---
Reason for exam: additional evaluation requested from abnormal screening. Last mammogram was performed less than 1 month ago. History: Patient is postmenopausal. Family history of breast cancer in mother at age 67 and breast cancer in grandmother at age 67. Took estrogen for 10 years beginning at age 48. Took progesterone for 10 years beginning at age 48. Physical Findings: Nurse did not find any significant physical abnormalities on exam. MG 3D Work Up W/Cad RT CC and LM view(s) were taken of the right breast. Prior study comparison: November 12, 2019, bilateral MG screening mammo w CAD. March 07, 2015, bilateral MG screening mammo w CAD. The breast tissue is heterogeneously dense. This may lower the sensitivity of mammography. Benign appearing calcifications in the right breast. The more medial asymmetry resolves. The more posterior asymmetry does not however is stable back to 2013. These results were verbally communicated with the patient and result sheet given to the patient on 11/19/19. ASSESSMENT: Benign, BI-RAD 2 RECOMMENDATION: Return to routine screening mammogram schedule for both breasts.
== END | disposition home or self-care (01) ==
LOC: RADMAMWWP 13:05
PROVIDERS: ATTEND Obstetrics & Gynecology
DX: R92.8 Other abnormal and inconclusive findings on diagnostic imaging of breast (principal)
CPT/HCPCS: 77065; G0279; 77061

== ENCOUNTER → 2020-02-24 | Outpatient (CLI) | payer MEDICARE, BC, OTHER ==
--- NOTE | 2020-02-24 13:39 | MR ---
EXAMINATION TYPE: MR knee RT wo con DATE OF EXAM: 02/24/2020 COMPARISON: NONE HISTORY: Was on a Treadmill and the next day Knee Pain started. All Stiff in Joint area. TECHNIQUE: Multiplanar, multisequence images of the knee is performed without IV contrast. FINDINGS: MEDIAL MENISCUS: Medial extrusion noted on coronal images Anterior horn is intact without tear. Poste rior horn is truncated with abnormal signal particularly along posterior aspect extending to superior and inferior articular surfaces for reference sagittal image 7. LATERAL MENISCUS: Anterior horn is intact without tear. Subtle oblique increased signal posterior hor n extends to the inferior articular surface sagittal image 23. CRUCIATE LIGAMENTS: The anterior and posterior cruciate ligaments are intact and unremarkable. COLLATERAL LIGAMENTS: The medial collateral ligament and lateral collateral ligament complex are inta ct. Mild fluid signal surrounds the medial collateral ligament fibers. EXTENSOR MECHANISM: Visualized quadriceps and patellar tendons are intact. EFFUSION: There is moderate size suprapatellar joint effusion. POPLITEAL CYST: There is moderate size leaking popliteal/bar cyst measuring roughly 5.7 cm in candelario th sagittal image 7. TRICOMPARTMENT SPACES: . Moderate to severe narrowing patellofemoral compartment with mild spurring. Moderate to severe narrowing medial tibiofemoral compartment without significant spurring. CARTILAGE: Fissuring and cartilaginous loss medial tibiofemoral compartment with full-thickness areas of cartilaginous loss identified. BONE MARROW SIGNAL: Heterogeneous areas of diminished T1 and increased T2 signal greatest involving t he medial distal femoral condyle with surrounding T2 hyperintense signal or edema over roughly 3.0 cm segment is present. Serpiginous low T1 signal measures 2.5 cm AP diameter sagittal image 7. OTHER: No additional significant abnormality is appreciated. IMPRESSION: 1. Subchondral insufficiency fracture distal medial femoral condyle with associated osseous contusion . 2. Full-thickness tear posterior horn of medial meniscus. 3. Mild MCL sprain injury. 4. Subtle oblique tear posterior horn lateral meniscus. 5. Small to moderate-sized suprapatellar joint effusion. 6. Moderate-sized leaking popliteal cyst. 7. Background moderate to advanced degenerative changes greatest medial tibial femoral compartment pr esumed product of underlying osteoarthritis.
== END | disposition home or self-care (01) ==
LOC: RADMRIMAIN 11:13
PROVIDERS: ATTEND Physician Assistant
DX: S83.241A Other tear of medial meniscus, current injury, right knee, initial encounter (principal); S83.281A Other tear of lateral meniscus, current injury, right knee, initial encounter; S72.431A Displaced fracture of medial condyle of right femur, initial encounter for closed fracture

== ENCOUNTER → 2021-08-24 | Outpatient (CLI) | payer MEDICARE, BC ==
--- NOTE | 2021-08-24 16:24 | BD ---
EXAMINATION TYPE: Axial Bone Density DATE OF EXAM: 08/24/2021 COMPARISON: 01/02/2012 CLINICAL HISTORY: Disorder of bone. Height: 60.2 IN Weight: 135 LBS FRAX RISK QUESTIONS: History of Fracture in Adulthood: LT FOOT AGE 75 RISK FACTORS HISTORY OF: Active: YES Postmenopausal woman: AGE 53 Take estrogen and/or progesterone medications: NOT NOW How long: TOOK CONTROL 20 YEARS Frequent falls: FALLS DUE TO TRIPPING MEDICATIONS: Thyroid Medications: YES Which medication: Levothyroxine How Lon YEARS Additional Medications: LEVOTHYROXINE, MULTI VIT, ASTHMA MEDS, SINGULAIR, ADVAIR, HIGH CHOLESTEROL ME DS, BLOOD PRESSURE MEDS, MIGRAINE MEDS, EXAM MEASUREMENTS: Bone mineral densitometry was performed using the [employer] System. Bone mineral density as measured about the Lumbar spine is: ----- L1-L4(G/cm2): 1.067 T Score Values are as follows: ----- L2: -1.2 ----- L3: -1.6 ----- L4: -0.8 ----- L1-L4: -0.9 Bone mineral density has: Decreased -11.4% since study of: 01/02/2012 Bone mineral density about the R hip (g/cm2): 0.795 Bone mineral density about the L hip (g/cm2): 0.756 T Score values are as follows: -----R Neck: -1.7 -----L Neck: -2.0 -----R Total: -1.4 -----L Total: -1.5 Bone mineral density has: Decreased -8.2% since study of: 01/02/2012 IMPRESSION: Osteopenia (T Score between -2.5 and -1) remains present. There is slightly increased risk of fracture and the patient may be considered for treatment. Re-Screen 2-5 years. NOTE: T-SCORE=SD OF THE YOUNG ADULT MEAN.
--- NOTE | 2021-08-28 09:09 | MM ---
Reason for exam: screening (asymptomatic). Last mammogram was performed 1 year and 9 months ago. History: Patient is postmenopausal. Family history of breast cancer in mother at age 67 and breast cancer in grandmother at age 67. Took estrogen for 10 years beginning at age 48. Took progesterone for 10 years beginning at age 48. Physical Findings: A clinical breast exam by your physician is recommended on an annual basis and results should be correlated with mammographic findings. MG 3D Screening Mammo W/Cad Bilateral CC and MLO view(s) were taken. Prior study comparison: November 19, 2019, right breast MG 3d work up w/cad RT. November 12, 2019, bilateral MG screening mammo w CAD. The breast tissue is heterogeneously dense. This may lower the sensitivity of mammography. There is chronic nodularity bilaterally. Benign vascular calcifications. No significant changes when compared with prior studies. ASSESSMENT: Benign, BI-RAD 2 RECOMMENDATION: Routine screening mammogram of both breasts in 1 year.
== END | disposition home or self-care (01) ==
LOC: RADBDWWP 14:28
PROVIDERS: ATTEND Family Medicine
DX: Z12.31 Encounter for screening mammogram for malignant neoplasm of breast (principal); M85.89 Other specified disorders of bone density and structure, multiple sites
CPT/HCPCS: 77063; 77067; 77080

== ENCOUNTER → 2021-11-30 | Outpatient (CLI) | payer MEDICARE, BC ==
--- NOTE | 2021-11-30 15:09 | XR ---
EXAMINATION TYPE: XR chest 2V DATE OF EXAM: 11/30/2021 COMPARISON: Chest x-ray September 16, 2019 HISTORY: Cough with shortness of breath. TECHNIQUE: Frontal and lateral views of the chest are obtained. FINDINGS: There are chronic parenchymal changes bilaterally without suspicious focal air space opaci ty, pleural effusion, or pneumothorax seen. The cardiac silhouette size is stable and within normal limits. The osseous structures are demineralized. Underlying scoliosis is redemonstrated. IMPRESSION: Chronic changes without acute pulmonary process.
== END | disposition home or self-care (01) ==
LOC: RADXRYALE 14:51
PROVIDERS: ATTEND Physician Assistant
DX: J44.9 Chronic obstructive pulmonary disease, unspecified (principal); R05.9 Cough, unspecified
CPT/HCPCS: 71046

== ENCOUNTER → 2022-03-27 | Outpatient (CLI) | payer MEDICARE, BC ==
--- NOTE | 2022-03-27 10:06 | XR ---
Abdomen 2 view HISTORY: Distention and heartburn 2 views the abdomen There is a scoliotic curvature to the spine. Atherosclerotic vascular calcifications are present. No evident bowel obstruction or pneumoperitoneum. Lung bases are clear. Heart may be enlarged. IMPRESSION: No obstruction is evident.
== END | disposition home or self-care (01) ==
LOC: RADXRYALE 09:15
PROVIDERS: ATTEND Physician Assistant Medical
DX: R14.0 Abdominal distension (gaseous) (principal); R12 Heartburn
CPT/HCPCS: 74019

== ENCOUNTER → 2022-12-20 | Outpatient (CLI) | payer MEDICARE, BC ==
--- NOTE | 2022-12-20 10:48 | XR ---
EXAMINATION TYPE: XR chest 2V DATE OF EXAM: 12/20/2022 10:36 AM COMPARISON: Chest radiographs from 11/30/2021. TECHNIQUE: XR chest 2V Frontal and lateral views of the chest. CLINICAL INDICATION:Female, 77 years old with history of R053 CHRONIC COUGH; FINDINGS: Lungs/Pleura: There is flattening of the diaphragm with increased lucency of the lungs. No evidence o f pneumothorax, pleural effusion or focal consolidation. Pulmonary vascularity: Unremarkable. Heart/mediastinum: Cardiomediastinal silhouette is unremarkable. Musculoskeletal: No acute osseous pathology. IMPRESSION: 1. No acute cardiopulmonary disease process. 2. COPD changes.
== END | disposition home or self-care (01) ==
LOC: RADXRYALE 10:09
PROVIDERS: ATTEND Physician Assistant Medical
DX: J44.9 Chronic obstructive pulmonary disease, unspecified (principal); R05.3 Chronic cough
CPT/HCPCS: 71046

== ENCOUNTER → 2023-04-09 | Outpatient (CLI) | payer MEDICARE, BC ==
--- NOTE | 2023-04-17 11:17 | MR ---
EXAMINATION TYPE: MR knee LT wo con DATE OF EXAM: 04/09/2023 COMPARISON: None HISTORY: Left knee pain, fall. TECHNIQUE: Multiplanar, multisequence images of the knee is performed without IV contrast. FINDINGS: MEDIAL MENISCUS: Oblique tear posterior horn medial meniscus. Anterior horn of the medial meniscus is intact. LATERAL MENISCUS: Anterior and posterior horns are intact without tear. CRUCIATE LIGAMENTS: The anterior and posterior cruciate ligaments are intact and unremarkable. COLLATERAL LIGAMENTS: The medial collateral ligament and lateral collateral ligament complex are inta ct and unremarkable. EXTENSOR MECHANISM: Visualized quadriceps and patellar tendons are intact. EFFUSION: Small suprapatellar joint effusion noted. POPLITEAL CYST: Morejon's cyst measuring 4.4 cm in craniocaudal dimension. TRICOMPARTMENT SPACES: Mild narrowing medial tibiofemoral joint space. CARTILAGE: Intact BONE MARROW SIGNAL: No focal abnormal marrow signal is appreciated. OTHER: No additional significant abnormality is appreciated. IMPRESSION: 1.Oblique tear posterior horn medial meniscus. 2. Morejon's cyst.
== END | disposition home or self-care (01) ==
LOC: RADMRIMAIN 12:38
PROVIDERS: ATTEND Orthopaedic Surgery
DX: S83.242A Other tear of medial meniscus, current injury, left knee, initial encounter (principal); M71.22 Synovial cyst of popliteal space [Baker], left knee; W19.XXXA Unspecified fall, initial encounter

== ENCOUNTER 2023-07-17 05:33 | Day surgery (SDC) | payer MEDICARE, BC ==
[2023-07-17] MEDS ORDERED: ALPRAZolam 0.5 MG TAB PO PRN (05:49)
[2023-07-17] MEDS ORDERED: ALPRAZolam 0.25 MG TAB PO PRN (05:49)
[2023-07-17] MEDS ORDERED: NITROGLYCERIN SL TABS 0.4 MG TAB SUBLINGUAL PRN (05:49)
[2023-07-17] MEDS ORDERED: SODIUM CHLORIDE 0.9% 1,000 ML in EMPTY BAG 1 BAG IV SCH (05:49)
[2023-07-17] MEDS ORDERED: SODIUM CHLORIDE 0.9% 1,000 ML IV ONE (06:30)
[2023-07-17 06:38] VITALS: RESP 16; TEMP 98.5
[2023-07-17 06:58] LABS: African American GFR (CKD) >90 (>60 ml/min/1.73 sqM); Anion Gap 7 mmol/L; Blood Urea Nitrogen 19 mg/dL (7-17); Calcium 8.9 mg/dL (8.4-10.2); Carbon Dioxide 27 mmol/L (22-30); Chloride 106 mmol/L (98-107); Glucose 101 mg/dL (74-99); Non-African American GFR(CKD) 87 (>60 ml/min/1.73 sqM); Sodium 140 mmol/L (137-145)
[2023-07-17] MEDS ORDERED: ASPIRIN 325 MG TAB PO ONE (07:00)
[2023-07-17 07:20] LABS: Potassium 3.8 mmol/L (3.5-5.1)
[2023-07-17] MEDS: BENZOCAINE SPRAY 1 CAN TOPICAL ONE ×2 (07:25→07:32)
[2023-07-17] MEDS ORDERED: IV FLUID CONTINUATION 700 ML IV ONE (07:30)
[2023-07-17] MEDS ORDERED: fentaNYL (PF) 50 MCG/ML 2 ML AMP ONE (07:30)
[2023-07-17] MEDS ORDERED: MIDAZOLAM 2 MG/2 ML VIAL IVP ONE (07:32)
[2023-07-17] MEDS ORDERED: fentaNYL (PF) 50 MCG/ML 2 ML AMP IVP ONE (07:32)
--- NOTE | 2023-07-17 07:42 | P.PCN ---
Date of Procedure: 07/17/23 Operative Findings: TRANSESOPHAGEAL ECHOCARDIOGRAM GRID OPERATOR: JUANI GALICIA MD, RPVI INDICATION: Valvular heart disease SEDATION: Conscious sedation COMPLICATION: None LEVEL OF SEDATION Moderate to sedation length of 12 minutes PROCEDURE DESCRIPTION: After obtaining an informed consent, the patient was brought to transesophageal echocardiogram room. Pulse oximetry and heart monitors were attached to the patient. The patient throat was sprayed using lidocaine. The patient was turned into left lateral position. After that a bite guard was placed. After an appropriate conscious sedation was initiated, the transesophageal echocardiogram was advanced through a bite guard into the mid esophagus. A 2-D echocardiogram images, color Doppler images, continuous wave images, pulse-wave images, of various cardiac structure were performed. After that the transesophageal echocardiogram probe was advanced into the stomach and fixed to obtain transgastric view was. The probe was brought into the mid esophagus. Inter-atrial septum was interrogated using 2D images, color Doppler images, and then contrast study. After that transesophageal echocardiogram was withdrawn out and upon withdrawing the descending thoracic aorta all the way up to the ar ch was evaluated. CONCLUSION: 1. Normal biventricular dimension and systolic function 2. Biatrial enlargement 3. Thickened mitral valve leaflets/mitral valve prolapse was moderate mitral regurgitation 4. Trileaflet aortic valve with sclerosis with no stenosis or insufficiency 5. Moderate tricuspid regurgitation 6. Intact interatrial septum
[2023-07-17] MEDS ORDERED: LIDOCAINE 1% INJ 10MG/ML (20 ML MDV) SQ ONE (07:45)
[2023-07-17] MEDS ORDERED: VERAPAMIL SYRINGE (5 MG/10 ML) INTRAARTER ONE (07:47)
[2023-07-17] MEDS ORDERED: HEPARIN SODIUM 1,000 UN/ML (10ML VL) ONE (07:48)
[2023-07-17] MEDS ORDERED: HEPARIN SODIUM 1,000 UN/ML (10ML VL) IV ONE (07:49)
[2023-07-17] MEDS ORDERED: RX INFO: IV CONTRAST WAS GIVEN 1 EACH MISC MISCELLANE PRN (07:57)
--- NOTE | 2023-07-17 07:57 | P.PCN ---
Date of Procedure: 07/17/23 Operative Findings: CARDIAC CATHETERIZATION PERFORMING PHYSICIAN: Zaire Morillo MD, RPVI PROCEDURE PERFORMED: 1. Selective right and left coronary angiogram 2. Left heart catheterization 3. Ultrasound-guided access of the right radial art INDICATION: Shortness of breath of unknown etiology in this 77-year-old female patient who is known to have valvular heart disease. COMPLICATION: None APPROACH: Right radial artery LEVEL OF SEDATION: Moderate with a sedation length of 10 minutes PROCEDURE DESCRIPTION: After obtaining an informed consent, the patient was brought to cardiac central lab technician. Local anesthesia was performed using lidocaine subcutaneously. The right radial artery was cannulated using Seldinger technique, the guidewire passed easily, following that we advanced a 5-Malawian sheath dilator assembly, the wire and dilator were removed and sheath was flushed. Following that, 2 mg of verapamil along with 3000 unit heparin were given. Selective right and left coronary angiogram using a 6-Malawian JR4 and JL 3.5 catheters. Following that we did left heart catheterization using 6-Malawian pigtail catheter. The procedure was completed there was no complication. SELECTIVE CORONARY ANGIOGRAM: The right coronary artery: Large-caliber vessel and a dominant vessel. The RCA has mild disease only. Bifurcates into PDA and PLV branches both appear to have mild disease Left main: Is angiographically normal The left circumflex: Large-caliber vessel and nondominant vessel. Its angiographically normal. This into multiple obtuse marginal branches and the appeared to be angiographically normal The left anterior descending artery: Large-caliber vessel. The LAD has mild disease in the midportion by the bifurcation of the diagonal branch HEMODYNAMICS: The LVEDP was 10 mmHg was no significant gradient across aortic valve CONCLUSION: 1. Mild CAD 2. Normal left-sided filling pressure POSTPROCEDURE MANAGEMENT: Medical treatment
[2023-07-17] MEDS ORDERED: SODIUM CHLORIDE 0.9% 1,000 ML IV SCH (08:00)
[2023-07-17] MEDS ORDERED: IOPAMIDOL-370 100ML BTL INJ ONE (08:01)
[2023-07-17] MEDS ORDERED: METOPROLOL SUCCINATE (ER) 25 MG TAB.ER.24H PO SCH (09:00)
[2023-07-17] MEDS ORDERED: LOSARTAN 50 MG TAB PO SCH (09:00)
[2023-07-17 11:34] VITALS: BP 156/76; PULSE 71
== END 2023-07-17 11:52 | disposition home or self-care (01) ==
LOC: CATHCVL 05:33
PROVIDERS: ATTEND Internal Medicine Interventional Cardiology
DX: I08.1 Rheumatic disorders of both mitral and tricuspid valves (principal); I25.10 Atherosclerotic heart disease of native coronary artery without angina pectoris; I10 Essential (primary) hypertension; E78.5 Hyperlipidemia, unspecified; Z88.0 Allergy status to penicillin; Z88.2 Allergy status to sulfonamides; Z79.899 Other long term (current) drug therapy
CPT/HCPCS: 93312; 93320; 93325; 93458; 80048; C1769; C1894; J2250; J2001; J3010; J1644; Q9967

== ENCOUNTER → 2023-10-27 | Outpatient (CLI) | payer MEDICARE, BC ==
--- NOTE | 2023-10-28 08:55 | XR ---
EXAMINATION TYPE: XR chest 2V DATE OF EXAM: 10/27/2023 2:07 PM CLINICAL INDICATION:Female, 78 years old with history of R059,[id number] COUGH,SOB; [facility] COMPARISON: Chest radiographs from 12/20/2022. TECHNIQUE: XR chest 2V Frontal and lateral views of the chest. FINDINGS: Lungs/Pleura: There is flattening of the diaphragm with increased lucency of the lungs. No evidence o f pneumothorax, pleural effusion or focal consolidation. Pulmonary vascularity: Unremarkable. Heart/mediastinum: Cardiomediastinal silhouette is unremarkable. Musculoskeletal: No acute osseous pathology. IMPRESSION: 1. No acute cardiopulmonary disease process. 2. COPD changes.
== END | disposition home or self-care (01) ==
LOC: RADXRYALE 13:58
PROVIDERS: ATTEND Physician Assistant Medical
DX: J44.9 Chronic obstructive pulmonary disease, unspecified (principal); R05.9 Cough, unspecified; R06.02 Shortness of breath
CPT/HCPCS: 71046

== ENCOUNTER → 2023-12-15 | Outpatient (CLI) | payer MEDICARE, BC ==
--- NOTE | 2023-12-15 15:23 | BD ---
EXAMINATION TYPE: Axial Bone Density DATE OF EXAM: 12/15/2023 CLINICAL HISTORY: 78 years old Female. ICD-10 CODE: M85.89 OTH DISRD OF BONE DENSITY Height: 59.8in Weight: 139lb FRAX RISK QUESTIONS: History of Fracture in Adulthood: yes Secondary Osteoporosis: RISK FACTORS HISTORY OF: MEDICATIONS: Thyroid Medications: Which medication: Synthroid How Long: about 10 years EXAM MEASUREMENTS: Bone mineral densitometry was performed using the [employer] System. Bone mineral density as measured about the Lumbar spine is: ----- L1-L4(G/cm2): 1.176 T Score Values are as follows: ----- L1: 0.5 ----- L2: -0.9 ----- L3: -0.4 ----- L4: 0.4 ----- L1-L4: 0.0 Z Score Values are as follows: ----- L1: 2.4 ----- L2: 1.0 ----- L3: 1.5 ----- L4: 2.3 ----- L1-L4: 1.9 Bone mineral density has: Increased 10.2% since study of: 08-24-21 Bone mineral density about the R hip (g/cm2): 0.833 Bone mineral density about the L hip (g/cm2): 0.815 T Score values are as follows: -----R Neck: -1.7 -----L Neck: -2.0 -----R Total: -1.4 -----L Total: -1.5 Z Score values are as follows: -----R Neck: 0.5 -----L Neck: 0.2 -----R Total: 0.7 -----L Total: 0.5 Bone mineral density has: Increased 0.1% since study of: 08-24-21 FRAX%s: The graph provided illustrates a 22.5% chance for a major osteoporotic fx and a 6% chance for the hips probability for fx in 10 years time. IMPRESSION: Osteopenia (T Score between -2.5 and -1). There is slightly increased risk of fracture and the patient may be considered for treatment. Re-Screen 2-5 years. NOTE: T-SCORE=SD OF THE YOUNG ADULT MEAN.
--- NOTE | 2023-12-16 09:46 | MM ---
Reason for Exam: Screening (asymptomatic). Last mammogram was performed 2 year(s) and 4 month(s) ago. Patient History: Menarche at age 9. First Full-Term at age 16. Postmenopausal. Patient has history of breast feeding. Estrogen for 10 years from age 48 until age 58. Progesterone for 10 years from age 48 until age 58. Maternal grandmother had breast cancer, age 67. Mother had breast cancer, age 67. Risk Values: [place] 5 year model risk: 3.4%. NCI Lifetime model risk: 5.2%. Prior Study Comparison: 03/07/2015 Bilateral Screening Mammogram, [facility]. 11/12/2019 Bilateral Screening Mammogram, [facility]. 11/19/2019 Right Diagnostic Mammogram, [facility]. 08/24/2021 Bilateral Screening Mammogram, [facility]. Tissue Density: The breasts are heterogeneously dense, which may obscure small masses. Findings: Analyzed By CAD. There is no suspicious group of microcalcifications or new suspicious mass in either breast. Benign-appearing calcifications. Overall Assessment: Benign, BI-RAD 2 Management: Screening Mammogram of both breasts in 1 year. . Patient should continue monthly self-breast exams. A clinical breast exam by your physician is recommended on an annual basis. This exam should not preclude additional follow-up of suspicious palpable abnormalities. Note on Salina scores and lifetime risk: 1. A Salina score greater than 3% is considered moderate risk. If this is the case, consider specialist referral to assess eligibility for a risk reducing agent. 2. If overall lifetime risk for the development of breast cancer is 20% or higher, the patient may qualify for future screening with alternating mammogram and breast MRI. Electronically signed and approved by: Jairo Luna M.D. Radiologis
== END | disposition home or self-care (01) ==
LOC: RADMAMWWP 12:05
PROVIDERS: ATTEND Family Medicine
DX: Z12.31 Encounter for screening mammogram for malignant neoplasm of breast (principal); M85.89 Other specified disorders of bone density and structure, multiple sites; Z78.0 Asymptomatic menopausal state; Z80.3 Family history of malignant neoplasm of breast
CPT/HCPCS: 77063; 77067; 77080

== ENCOUNTER → 2024-11-18 | Outpatient (CLI) | payer MEDICARE ==
--- NOTE | 2024-11-18 11:40 | CT ---
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 TECHNIQUE: Multiple thin axial images were obtained through the temporal bones and internal auditory canals. Additional coronal reformatted images were obtained. No IV contrast was utilized. STENVER and POSCHL views were created on a separate work station CT Contrast: mL of , none. CT DLP: 142.7 mGycm, Automated exposure control for dose reduction was used. FINDINGS: Right Temporal Bone: External Ear: The external auditory canal is unremarkable, The tympanic membrane is present and unrem arkable. Middle Ear: The ossicles demonstrate a normal appearance. Prussak's space is clear and the scutum i s intact. There is no evidence of osseous erosion and the tegmen tympani is intact. Inner Ear: Cochlea, vestibule and semi circular canals are unremarkable. No evidence of carotid jalen l dehiscence. Two and a half turns of the cochlea are identified. The vestibular aqueduct is not enl arged. Mastoid Air Cells: The mastoid air cells are predominantly pneumatized.. The tegmen mastoideum is int act. The aditus ad antrum is clear. Internal Auditory Canal: The internal auditory canal is unremarkable. Left Temporal Bone: External Ear: The external auditory canal is unremarkable, The tympanic membrane is present and unrem arkable. Middle Ear: Fluid seen within the middle ear which has increased from prior exam in 2019. The ossicl es demonstrate a normal appearance. Prussak's space is opacified and the scutum is intact. There is no evidence of osseous erosion and the tegmen tympani is intact. Inner Ear: Cochlea, vestibule and semi circular canals are unremarkable. No evidence of carotid jalen l dehiscence. Two and a half turns of the cochlea are identified. The vestibular aqueduct is not enl arged. Mastoid Air Cells: The mastoid air cells are opacified. The tegmen mastoideum is intact. The aditus a d antrum is clear. Internal Auditory Canal: The internal auditory canal is unremarkable. Other: Moderate to severe paranasal sinus mucosal thickening and sestamibi changes bilaterally and ludin ny osteitis changes. IMPRESSION: 1. Left middle ear effusion which is slightly increased from prior with mastoid air cell effusion co rrelate for otomastoiditis. There remains no evidence for erosion within the mastoid air cells or mid dle ear at this time. 2. Minimal right mastoid air cell effusion.. Moderate to severe chronic paranasal sinus disease. [facility], , 11/18/2024 11:37 AM
== END | disposition home or self-care (01) ==
LOC: RADCTMAIN 10:16
PROVIDERS: ATTEND Orthopaedic Surgery Hand Surgery
DX: H71.13 Cholesteatoma of tympanum, bilateral (principal); J34.89 Other specified disorders of nose and nasal sinuses
CPT/HCPCS: 70480